=== PATIENT | male | born 1945 | race Caucasian/White ===

== ENCOUNTER 2017-02-20 08:41 | Inpatient (IN) | payer MEDICARE ==
[~2017-02-20] VITALS: Ht 172.7 cm; Wt 96.6 kg
[~2017-02-20 08:41] MED LIST: ATENOLOL50 MG PO; FERROUS SULFAT325 MG PO; LEVAQUIN500 MG PO; LEVEMIR100 UNIT/1 SQ; METFORMIN HCL500 MG PO; NOVOLOG100 UNIT/1 SQ; OMEPRAZOLE40 MG PO; PROAIR HFA INH8.5 GM INH; RAMIPRIL10 MG PO
[2017-02-20 10:52] LABS: INR 1.15; PROTHROMBIN TIME 15.3 seconds (11.9-14.5)
[2017-02-20 10:53] LABS: PARTIAL THROMBOPLASTIN TIME 32.2 seconds (23.8-35.5)
[2017-02-20] MEDS ORDERED: LORAZEPAM INJ 2 MG/ML VIAL ONE (10:56)
--- NOTE | 2017-02-20 14:47 | Diagnostic Imaging Report ---
PROCEDURE: CT GUIDED NEEDLE PLACEMENT COMPARISON: [facility] CT ABDOMEN/PELVIS 07/21/[address] images [address] CHEST dated 02/02/2017 INDICATIONS: Left upper lobe mass MEDICATIONS:5 ml 1% lidocaine; patient did receive Ativan in incremental fashion with a total dose of 2 mg. He was continuously monitored during the procedure by the dedicated IR nurse. EBL: < 5 ml SPECIMEN: Given to pathology DLP: 3831.36 mGy-cm DESCRIPTION OF PROCEDURE: Informed consent was obtained. The patient's left upper chest was prepped and draped in the standard sterile fashion. Multiple CT images were used to localize the abnormality. The skin was anesthetized with lidocaine. Using CT guidance 17 gauge guiding needle was placed into the cavitary left upper lobe mass. Through this needle guide multiple FNA passes were performed with 20G Chiba needles. A total of 6 core biopsies utilizing a 20 gauge biopsy gun were also performed. The samples were given to pathology in attendance. The patient tolerated the procedure well. Post procedure pneumothorax was noted. The patient remained asymptomatic but it was elected to place a chest tube. CONCLUSION: Successful CT guided left upper lobe mass biopsy. Talha Rollins D.O. Dictated by: Talha Rollins D.O. on 02/20/2017 at 14:55 Electronically approved by: Talha Rollins D.O. on 02/20/2017 at 14:55
--- NOTE | 2017-02-20 14:51 | Diagnostic Imaging Report ---
PROCEDURE:CHEST TUBE PLACEMENT COMPARISON:CT biopsy performed this date. INDICATIONS:LEFT UPPER LOBE LESION DESCRIPTION OF PROCEDURE:Informed consent was obtained. The patient was prepped and draped in the standard sterile fashion. Using CT guidance, a chest tube was sterilely placed into the pleural space with Seldinger technique. TUBE SPECIFICATIONS:10 [place] loop locking all purpose catheter. TUBE LOCATION:Left lower anterior lung base MEDICATIONS:None COMPLICATIONS:None. CONCLUSION: 1. Chest tube placement without complication. 2. Tube was placed to 20 cm of wall suction. 3. Patient will be admitted for chest tube management. Talha Rollins D.O. Dictated by: Talha Rollins D.O. on 02/20/2017 at 14:58 Electronically approved by: Talha Rollins D.O. on 02/20/2017 at 14:58
--- NOTE | 2017-02-20 14:54 | Diagnostic Imaging Report ---
PROCEDURE: CHEST XRAY POST PROCEDURE COMPARISON: None. INDICATIONS: POST LUNG BX FINDINGS: LUNGS: Mild pulmonary vascular prominence. Left basilar chest tube. PLEURA: Small residual pneumothorax on the recent chest tube placement CT is barely visible but likely in the left anterior upper lobe medially. HEART \T\ MEDIASTINUM: The heart is within normal size-limits. BONES \T\ SOFT TISSUES: No acute findings. Bear screws overlie the right humeral head. CONCLUSION: Minimal residual pneumothorax. Talha Rollins D.O. Dictated by: Talha Rollins D.O. on 02/20/2017 at 15:02 Electronically approved by: Talha Rollins D.O. on 02/20/2017 at 15:02
[2017-02-20 16:00] VITALS: BP 115/63
[2017-02-20] MEDS ORDERED: INSULIN DETEMIR 26 UNIT SQ SCH (16:30)
[2017-02-20] MEDS: HYDROCODONE/APAP 10MG-325MG TAB PO PRN ×2 (16:50→22:50)
[2017-02-20] MEDS: METFORMIN HCL 500 MG TAB PO SCH (17:00)
[2017-02-20 17:32] VITALS: BP 115/63
[2017-02-20] MEDS: INSULIN LISPRO 100 UNIT/1 ML 3ML VIAL SQ SCH (19:23)
[2017-02-20 20:00] VITALS: BP 135/62
[2017-02-20] MEDS ORDERED: ZOLPIDEM TARTRATE 10 MG TAB PO PRN (21:00)
[2017-02-20] MEDS: INSULIN DETEMIR 100 UNIT/ML PEN SQ SCH (21:14)
[2017-02-21 00:25] VITALS: BP 98/55
[2017-02-21 08:00] VITALS: BP 106/52
[2017-02-21] MEDS: FERROUS SULFATE 325 MG TAB PO SCH (08:23)
[2017-02-21] MEDS: PANTOPRAZOLE SOD 40 MG TABEC PO SCH (08:23)
[2017-02-21] MEDS: RAMIPRIL 5 MG CAP PO SCH (08:23)
[2017-02-21] MEDS: METFORMIN HCL 500 MG TAB PO SCH ×2 (08:23→17:12)
[2017-02-21] MEDS: ATENOLOL 50 MG TAB PO SCH (08:25)
[2017-02-21] MEDS ORDERED: NON-FORMULARY MEDICATION (Ramipril 10 MG) PO SCH (09:00)
[2017-02-21] MEDS: INSULIN LISPRO 100 UNIT/1 ML 3ML VIAL SQ SCH ×3 (10:04→16:30)
[2017-02-21 12:00] VITALS: BP 185/91
[2017-02-21] MEDS: HYDROCODONE/APAP 10MG-325MG TAB PO PRN ×3 (12:21→22:15)
--- NOTE | 2017-02-21 15:28 | Diagnostic Imaging Report ---
PROCEDURE: Frontal and lateral views of the chest. COMPARISON: [facility], CT, OUTSIDE CT IMAGES, 02/02/2017, 13:36. Patients [facility], DX, CHEST XRAY POST PROCEDURE, 02/20/2017, 14:18. INDICATIONS: post lung bx FINDINGS: See impression. IMPRESSION: 1. previously described lucency in the left lung is less conspicuous on the current exam. No abnormal lucency is noted anteriorly on the lateral view. 2. No definite pneumothorax is identified. 3. Central pulmonary venous congestion. Prominence of the interstitial markings bilaterally, consistent with previously visualized fibrotic/interstitial changes. Mookie Lloyd M.D. Dictated by: Mookie Lloyd M.D. on 02/21/2017 at 15:35 Electronically approved by: Mookie Lloyd M.D. on 02/21/2017 at 15:35
[2017-02-21 16:00] VITALS: BP 175/87
[2017-02-21 20:00] VITALS: BP 129/61
[2017-02-21] MEDS: ACETAMINOPHEN 325 MG TAB PO PRN (20:40)
[2017-02-21] MEDS: INSULIN DETEMIR 100 UNIT/ML PEN SQ SCH (21:28)
[2017-02-22] VITALS (11 sets, daily range): BP systolic 78–205; BP diastolic 49–92
[2017-02-22] MEDS: HYDROCODONE/APAP 10MG-325MG TAB PO PRN (02:30)
[2017-02-22] MEDS: ACETAMINOPHEN 325 MG TAB PO PRN ×3 (05:15→19:50)
--- NOTE | 2017-02-22 07:02 | Diagnostic Imaging Report ---
EXAM: CHEST 2 VIEWS, PA and lateral DATE: 02/22/2017 6:00 AM Time stamp on exam: 0554 hours INDICATION: Pneumothorax postlung biopsy COMPARISON: None available FINDINGS: LINES/TUBES: Partially visualized left basilar percutaneous pigtail pleural drain. LUNGS: Bilateral emphysema and peripheral pulmonary fibrosis. Left upper lobe mass. PLEURA: No pneumothorax. HEART AND MEDIASTINUM: Normal size and contour. BONES AND SOFT TISSUES: No acute findings. IMPRESSION: No pneumothorax. Signed by: Dr. Faby Jefferson M.D. on 02/22/2017 6:59 AM
[2017-02-22] MEDS: INSULIN LISPRO 100 UNIT/1 ML 3ML VIAL SQ SCH ×3 (08:39→16:55)
[2017-02-22] MEDS: RAMIPRIL 5 MG CAP PO SCH (08:39)
[2017-02-22] MEDS: FERROUS SULFATE 325 MG TAB PO SCH (08:39)
[2017-02-22] MEDS: METFORMIN HCL 500 MG TAB PO SCH ×2 (08:39→16:55)
[2017-02-22] MEDS: PANTOPRAZOLE SOD 40 MG TABEC PO SCH (08:39)
[2017-02-22] MEDS: ATENOLOL 50 MG TAB PO SCH (08:39)
[2017-02-22 10:14] LABS: BASOPHILS % 0.5 % (0.0-1.0); EOSINOPHILS % 0.3 % (0.0-6.0); HEMATOCRIT 44.8 % (38.2-49.6); HEMOGLOBIN 15.8 g/dL (14.0-18.0); LYMPHOCYTES # (AUTO) 0.9 (1.0-3.2); LYMPHOCYTES % 14.9 % (18.0-39.1); MEAN CORPUSCULAR HEMOGLOBIN 34.6 pg (28-32); MEAN CORPUSCULAR HGB CONC 35.3 g/dL (31-35); MEAN CORPUSCULAR VOLUME 98.2 fL (81-99); MONOCYTES # (AUTO) 0.6 (0.2-0.8); MONOCYTES % 10.7 % (4.4-11.3); NEUTROPHILS # (AUTO) 4.3 (2.1-6.9); NEUTROPHILS % 72.9 % (38.7-80.0); PLATELET COUNT 93 x10e3/uL (140-360); RED BLOOD COUNT 4.56 x10e6/uL (4.3-5.7); RED CELL DISTRIBUTION WIDTH 14.6 % (11.7-14.4)
[2017-02-22 10:28] LABS: ANION GAP 14.8 mmol/L (8-16); BLOOD UREA NITROGEN 16 mg/dL (7-26); BUN/CREATININE RATIO 18 (6-25); CALCIUM 8.5 mg/dL (8.4-10.2); CARBON DIOXIDE 19 mmol/L (22-29); CHLORIDE 100 mmol/L (98-107); CREATININE, SERUM 0.87 mg/dL (0.72-1.25); EST GLOMERULAR FILTRATION RATE > 60 ML/MIN (60-); GLUCOSE 206 mg/dL (74-118); POTASSIUM 3.8 mmol/L (3.5-5.1); SODIUM 130 mmol/L (136-145)
[2017-02-22] MEDS ORDERED: CLONIDINE HCL 0.2 MG TAB PO PRN (12:00)
[2017-02-22] MEDS ORDERED: SODIUM CHLORIDE 0.9% 1000ML 1,000 ML IV SCH (12:00)
[2017-02-22] MEDS ORDERED: AZITHROMYCIN 500MG/NS 250 ML 250 ML IV SCH (12:30)
[2017-02-22 13:07] LABS: BILIRUBIN,URINE NEGATIVE (NEGATIVE); KETONES,URINE NEGATIVE (NEGATIVE); LEUKOCYTE ESTERASE ,URINE NEGATIVE (NEGATIVE); NITRITE,URINE NEGATIVE (NEGATIVE); PROTEIN,URINE DIPSTICK NEGATIVE (NEGATIVE); URINE UROBILINOGEN 0.2 mg/dL (0.2 - 1)
[2017-02-22 13:08] LABS: CLARITY,URINE CLEAR (CLEAR); COLOR,URINE YELLOW (YELLOW); EPITHELIAL CELLS,URINE RARE /LPF
--- NOTE | 2017-02-22 13:22 | Diagnostic Imaging Report ---
PROCEDURE: CHEST SINGLE (PORTABLE) 1245 hrs. COMPARISON: Chest x-ray 0554 hours; CT chest from outside institution 02/02/17; CT lung biopsy 02/20/17 INDICATIONS: CHEST TUBE REMOVAL FINDINGS: LUNGS: Pigtail catheter in the left lung base has been removed. The image is under-penetrated. There is a sliver of hypoattenuation along the medial and inferior aspect of the left lung that parallels the descending thoracic aorta suggestive residual pneumothorax. A soft tissue density in the lateral left upper lobe measures approximately 3 cm and corresponds to the cavitary mass in spiculation identified on CT. This is similar in appearance. The interstitial prominence throughout each lung is stable. The lungs are diffusely hyperinflated consistent with emphysema. There are no new air space opacities. PLEURA: No effusions. HEART \T\ MEDIASTINUM: The heart is mildly enlarged. The aorta is ectatic and stable in morphology. No hilar lymphadenopathy. BONES \T\ SOFT TISSUES: No focal osseous lesions. CONCLUSION: Small anterior and medial pneumothorax in the inferior chest is suspected after chest tube removal. Emphysema. Left upper lobe mass is stable in size and morphology. Dictated by: Gomez Aleman M.D. on 02/22/2017 at 13:30 Electronically approved by: Gomez Aleman M.D. on 02/22/2017 at 13:30
[2017-02-22] MEDS ORDERED: SODIUM CHLORIDE 0.9% 250ML 250 ML ONE (15:36)
[2017-02-22] MEDS ORDERED: SODIUM CHLORIDE 0.9% 250ML 250 ML IV ONE (15:45)
[2017-02-22] MEDS ORDERED: CEFTRIAXONE SOD 1 GM VIAL IV SCH (16:00)
[2017-02-22] MEDS: OSELTAMIVIR PHOSPHATE 75 MG CAP PO SCH (16:16)
[2017-02-22] MEDS: LEVOFLOXACIN 500MG/D5W 100ML 100 ML IV SCH (16:54)
[2017-02-22] MEDS: INSULIN DETEMIR 100 UNIT/ML PEN SQ SCH (21:30)
[2017-02-23 00:33] VITALS: BP 121/51
[2017-02-23 05:51] VITALS: BP 156/84
[2017-02-23] MEDS: ACETAMINOPHEN 325 MG TAB PO PRN ×2 (06:25→16:36)
[2017-02-23 08:29] VITALS: BP 123/59
[2017-02-23] MEDS: FERROUS SULFATE 325 MG TAB PO SCH (10:03)
[2017-02-23] MEDS: METFORMIN HCL 500 MG TAB PO SCH ×2 (10:03→16:40)
[2017-02-23] MEDS: ATENOLOL 50 MG TAB PO SCH (10:03)
[2017-02-23] MEDS: INSULIN LISPRO 100 UNIT/1 ML 3ML VIAL SQ SCH ×3 (10:03→16:40)
[2017-02-23] MEDS: PANTOPRAZOLE SOD 40 MG TABEC PO SCH (10:03)
[2017-02-23] MEDS: OSELTAMIVIR PHOSPHATE 75 MG CAP PO SCH ×2 (10:50→16:40)
[2017-02-23] MEDS ORDERED: DEXTROSE 50% SYRINGE 50 ML IV PRN (12:00)
[2017-02-23 12:30] VITALS: BP 127/78
--- NOTE | 2017-02-23 13:31 | Consultation ---
DATE OF CONSULTATION: February 23, 2017 INFECTIOUS DISEASE CONSULTATION ATTENDING PHYSICIAN: Dr. Wolf Somers. REASON FOR CONSULTATION: Fever. Thank you, Dr. Somers, for asking me to see this patient. HISTORY: The patient is a 71-year-old man referred for fever. He was admitted on February 20, 2017, for left lung biopsy. The patient was noted to have a left upper lobe lesion on chest CT scan. He underwent the procedure as planned, but his course was complicated by a left pneumothorax, lung collapse and fever. He denies nausea, vomiting, diarrhea, dysuria and abdominal pain. The patient required chest tube placement until yesterday. He also had peripheral IVs, which were removed. Currently he feels better but still reports feeling hot and cold. PAST MEDICAL HISTORY: Diabetes mellitus type 2, hypertension, hyperlipidemia, chronic obstructive pulmonary disease, peptic ulcer disease and postpolio syndrome. PAST SURGICAL HISTORY: Multiple right leg reconstructive surgeries for complications of polio. Also, hand surgery. ALLERGIES: NO KNOWN DRUG ALLERGIES. MEDICATION: The current antimicrobials are Levaquin 500 mg IV piggyback q.24 h., azithromycin 500 mg IV piggyback q.24 h. and oseltamivir 750 mg p.o. b.i.d. IMMUNIZATION: He received influenza vaccine in December 2016. Also, he received pneumococcal vaccination in the past. FAMILY HISTORY: His father of liver cancer. His mother had diabetes mellitus and stroke. A sister with diabetes mellitus and breast cancer. SOCIAL HISTORY: He quit smoking cigarettes in 1992. REVIEW OF SYSTEMS: As per history of present illness. PHYSICAL EXAMINATION GENERAL: No acute distress. VITAL SIGNS: T-max 101.8, pulse 76, respiratory rate 20, blood pressure 123/59. Weight 213 pounds. HEENT: Normocephalic. There is no icterus or injection of conjunctivae. There is no ear or nasal discharge. Moist oral mucosa. No pharyngeal erythema or exudate. NECK: Supple. No lymphadenopathy. LUNGS: A few rhonchi bilaterally. HEART: Normal S1 and S2. Regular. ABDOMEN: Soft and nontender. EXTREMITIES: There is atrophy of the right lower extremity with plus edema. There is no clubbing or cyanosis. SKIN: There is old ecchymosis of the left upper chest. There is no acute erythema. MAT PACKER: Awake, alert and oriented to person, place and time. LABORATORY: February 22, 2017: WBC 5960, hemoglobin 15.8, platelet 93,000. Neutrophil 72.9, lymph 14.9, mono 10.7, eosinophil 0.3, basophil 0.5. BUN 16, creatinine 0.87, blood glucose 148. Urinalysis is negative. Blood culture is pending. Sputum AFB smear is negative. IMPRESSION 1. Fever. Appears to improve. 2. Pneumothorax complicating left lung biopsy, resolved. 3. Chronic obstructive pulmonary disease. 4. Diabetes mellitus type 2, controlled. PLAN 1. Stop azithromycin. 2. Check venous Doppler ultrasound of the left lower limb. Job#: [id number] EV
[2017-02-23 16:11] VITALS: BP 141/64
[2017-02-23] MEDS: LEVOFLOXACIN 500MG/D5W 100ML 100 ML IV SCH (16:39)
[2017-02-23] MEDS ORDERED: KETOROLAC TROMETHAMINE 30 MG/ML VIAL IV ONE (17:00)
[2017-02-23 20:00] VITALS: BP 119/68
[2017-02-23] MEDS: INSULIN DETEMIR 100 UNIT/ML PEN SQ SCH (21:00)
[2017-02-24 00:51] VITALS: BP 126/76
[2017-02-24 04:52] VITALS: BP 116/56
[2017-02-24] MEDS: HYDROCODONE/APAP 10MG-325MG TAB PO PRN (05:34)
[2017-02-24] MEDS: INSULIN LISPRO 100 UNIT/1 ML 3ML VIAL SQ SCH ×2 (07:30→11:30)
[2017-02-24 08:00] VITALS: BP 125/59
[2017-02-24] MEDS: METFORMIN HCL 500 MG TAB PO SCH (08:00)
[2017-02-24] MEDS: PANTOPRAZOLE SOD 40 MG TABEC PO SCH (09:00)
[2017-02-24] MEDS: OSELTAMIVIR PHOSPHATE 75 MG CAP PO SCH (09:00)
[2017-02-24] MEDS: ATENOLOL 50 MG TAB PO SCH (09:00)
[2017-02-24] MEDS: FERROUS SULFATE 325 MG TAB PO SCH (09:00)
[2017-02-24 12:00] VITALS: BP 158/70
== END 2017-02-24 14:00 | disposition home or self-care (01) | DRG 201 ==
LOC: CT 08:41 → MED/SURG2 14:02
PROVIDERS: ADMIT Internal Medicine Critical Care Medicine; ATTEND Internal Medicine Critical Care Medicine
PROC: 0BBG3ZX Excision of Left Upper Lung Lobe, Percutaneous Approach, Diagnostic (ICD-10-PCS; principal; 2017-02-20)
PROC: 0W9B3ZX Drainage of Left Pleural Cavity, Percutaneous Approach, Diagnostic (ICD-10-PCS; 2017-02-20)
PROC: 0W9B30Z Drainage of Left Pleural Cavity with Drainage Device, Percutaneous Approach (ICD-10-PCS; 2017-02-20)
DX: J95.811 Postprocedural pneumothorax (principal); K74.60 Unspecified cirrhosis of liver; J44.9 Chronic obstructive pulmonary disease, unspecified; E11.9 Type 2 diabetes mellitus without complications; Y84.8 Other medical procedures as the cause of abnormal reaction of the patient, or of later complication, without mention of misadventure at the time of the procedure; Y92.238 Other place in hospital as the place of occurrence of the external cause; R91.1 Solitary pulmonary nodule; R50.9 Fever, unspecified; Z79.4 Long term (current) use of insulin; Z77.090 Contact with and (suspected) exposure to asbestos
CPT/HCPCS: 32405; 32557; 36415; 71010; 71020; 77012; 80048; 81001; 82948; 85025; 85049; 85610; 85730; 87040; 87086; 87116; 87205; 87206; 87400; 88172; 88173; 88305; 88342; 93971; 97139; C1729; J0456; J1885; J1956; J2060; J7030; J7050

== ENCOUNTER → 2017-08-28 | Outpatient (CLI) | payer MEDICARE ==
--- NOTE | 2017-08-28 13:18 | Diagnostic Imaging Report ---
PROCEDURE:CT CHEST WITHOUT CONTRAST COMPARISON:[facility], CT, CT CHEST WO, 07/20/2014, 17:32; CT chest performed at no cost [facility] 02/02/17 INDICATIONS:MICROBACTERIA AVIUM COMPLEX TECHNIQUE: Axial CT images of the chest were obtained from the lung apices through the adrenal glands intravenous contrast. Coronal and sagittal reformations were made available for review. RADIATION DOSE: Total DLP: 536.02 mGy*cm Estimated effective dose: (DLP x 0.014 x size factor) mSv FINDINGS: Lymph nodes: No enlarged axillary, supraclavicular lymph nodes. Prominent mediastinal lymph nodes are stable with subcarinal lymph nodes measuring up to 2 cm in short axis. No evidence of hilar lymphadenopathy given the lack of intravenous contrast. No large cardiophrenic lymph nodes. Thyroid/base of neck: Unremarkable. Heart \T\ Mediastinum:The heart is top normal in size. Main pulmonary artery measures 3.2 cm in diameter (previously, 2.9 cm). Ascending aorta measures 3.3 cm in diameter (previously, 3.5 cm). No pericardial effusion. Moderate to severe coronary artery atherosclerosis. The esophagus is collapsed. Lungs: Right lung: Centrilobular and paraseptal emphysema are stable with areas of fibrosis. New partially calcified cavitary mass in the lateral upper lobe abutting the pleura measures 2.2 x 2.9 cm. No intraluminal fluid. No new findings in the middle or lower lobes. Punctate calcified granulomata are present throughout. Left lung: Centrilobular and paraseptal emphysema are stable with areas of fibrosis. Solid lateral upper lobe partially calcified mass in 2014 has now developed into a cavitating thick-walled complex measuring 3.4 x 3.0 cm (most recently, 3.7 x 3.0 cm). This is stable in morphology compared to the outside CT. No intraluminal fluid. Focal pleural thickening immediately adjacent is stable. 4-5 posterior satellite nodules have developed in measure up to 9 mm. Apical nodule measuring 6 x 11 mm is stable. No new findings in the lower lobe. Multiple subcentimeter calcified granulomata are stable. Pleura:No pleural effusion or pneumothorax. Airways: No bronchiectasis or intraluminal filling defect. Upper abdomen:Lobulated appearance of the liver is similar suggestive of cirrhosis. Stable mild splenomegaly with rounded contours. Multiple perigastric varices are present and grossly stable. Visualized portions of the adrenal glands are unremarkable. No ascites. Musculoskeletal:No compression fractures. Degenerative changes of the lower thoracic spine are stable. No lytic or blastic lesions. A lipoma of the left subscapularis is stable. . CONCLUSION: 1. Thick-walled, partially calcified cavitation in the left upper lobe with adjacent pleural thickening is stable. New soft tissue nodules have developed surrounding this mass suggestive of continued infection. Left apical nodule is stable. 2. New thick-walled cavitating mass in the right upper lobe abutting the pleura consistent with ongoing JUWAN infection. 3. Cirrhotic morphology of the liver and splenomegaly with varices consistent with portal hypertension. 4. Combined pulmonary fibrosis and emphysema. No progression. 5. Enlarged main pulmonary artery suggestive of pulmonary artery hypertension. Stable prominent subcarinal lymph nodes. Dictated by: Gomez Aleman M.D. on 08/28/2017 at 13:21 Electronically approved by: Gomez Aleman M.D. on 08/28/2017 at 13:21
== END ==
LOC: CT 10:58
PROVIDERS: ATTEND Internal Medicine Critical Care Medicine
DX: A31.2 Disseminated mycobacterium avium-intracellulare complex (DMAC) (principal)
CPT/HCPCS: 71250

== ENCOUNTER → 2018-03-21 | Outpatient (CLI) | payer MEDICARE ==
--- NOTE | 2018-03-21 15:49 | Diagnostic Imaging Report ---
EXAM: CT Chest WITHOUT contrast INDICATION: Mycobacterium avium. COMPARISON: CT chest 07/20/2014, CT Chest 08/28/2017. TECHNIQUE: Chest was scanned utilizing a multidetector helical scanner from the lung apex through the level of the adrenal glands without administration of IV contrast. Absence of intravenous contrast decreases sensitivity for detection of lymphadenopathy and vascular pathology. Coronal and sagittal reformations were obtained. Routine protocol was performed. IV CONTRAST: None COMPLICATIONS: None RADIATION DOSE: Total DLP: 524 mGy*cm CTDIvol has been reviewed. It is below the limits set by the Radiation Protocol Committee (RPC). Dose modulation, iterative reconstruction, and/or weight based adjustment of the mA/kV was utilized to reduce the radiation dose to as low as reasonably achievable. FINDINGS: LINES/ TUBES: None. LUNGS AND AIRWAYS: Severe bilateral centrilobular and paraseptal emphysema. Again noted are fibrotic changes with architectural distortion honeycombing, most pronounced in the lower lobes. Interval decrease in size of a cavitary left upper lobe partially calcified mass, now measuring up to 2.3 x 2.6 cm, previously 3.1 x 3.3 cm on the measurement on CT from 08/28/2017. Adjacent focal pleural thickening is unchanged. There are new clustered nodules in the medial left upper lobe on series 3, image 27. Multiple other noncalcified and calcified satellite nodules are unchanged. There is increasing size and cavitation of a mass in the right upper lobe, now measuring up to 3.8 x 2.4 cm, previously 1.8 x 2 cm. Bronchiectasis in the perihilar distribution is unchanged. Mild intralobular septal thickening with scattered groundglass opacities are present. PLEURA: Foci calcified pleural plaque in the left upper lobe. No pleural effusion or pneumothorax. HEART AND MEDIASTINUM: The thyroid gland is normal. Unchanged prominent subcarinal lymph node, measuring up to 2 cm short axis. The heart is normal in size. There is no pericardial effusion. The main pulmonary artery is mildly enlarged, measuring up to 3.2 cm. The thoracic aorta is normal in size associated with moderate calcifications. Extensive coronary artery calcifications. UPPER ABDOMEN: Cirrhotic morphology to the liver. Mild splenomegaly. Partially seen perigastric varices. Partially visualized right adrenal gland is unremarkable. BONES/SOFT TISSUES: Mild multilevel degenerative disk disease of the thoracic spine. IMPRESSION: Interval decrease in size of thick-walled, partially calcified cavitary mass in the left upper lobe with some stable and additional new surrounding soft tissue nodules. Interval increased size and cavitation of right upper lobe mass, consistent with ongoing JUWAN infection. Cirrhotic morphology to the liver with splenomegaly. Similar appearance of pulmonary fibrosis with associated severe emphysematous changes of the lungs. Signed by: Dr. Ferdinand Lemon MD on 03/21/2018 3:45 PM
== END ==
LOC: CT 14:28
PROVIDERS: ATTEND Internal Medicine Critical Care Medicine
DX: A31.2 Disseminated mycobacterium avium-intracellulare complex (DMAC) (principal)
CPT/HCPCS: 71250

== ENCOUNTER → 2018-05-04 | Outpatient (CLI) | payer MEDICARE ==
--- NOTE | 2018-05-04 11:44 | Diagnostic Imaging Report ---
EXAM: US EXTREMITY BANDA NON-VAS - RIGHT AXILLA DATE: 05/04/2018 10:01 AM INDICATION: Shoulder pain, mass COMPARISON: None FINDINGS: Grayscale and color flow Doppler ultrasound of the right axilla was performed. There is an oval cystic area measuring 1.8 x 1.3 x 1.0 cm adjacent to the chest wall in the right axilla. No internal blood flow is seen on color flow images. IMPRESSION: 1.8 cm nonspecific cystic mass in the right axilla. Signed by: Dr. Jovan Whyte M.D. on 05/04/2018 11:41 AM
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
== END ==
LOC: US 09:39
PROVIDERS: ATTEND Family Medicine
DX: M25.511 Pain in right shoulder (principal); R22.2 Localized swelling, mass and lump, trunk; I10 Essential (primary) hypertension
CPT/HCPCS: 76882

== ENCOUNTER → 2018-08-06 | Outpatient (CLI) | payer MEDICARE ==
[~2018-08-06] MED LIST changes: +GADOBENATE DIMEGLUMINE 1 ML IV ONE
[2018-08-06 15:17] LABS: BLOOD UREA NITROGEN 20 mg/dL (7-26); BUN/CREATININE RATIO 24 (6-25); CREATININE, SERUM 0.83 mg/dL (0.72-1.25); EST GLOMERULAR FILTRATION RATE > 60 ML/MIN (60-)
--- NOTE | 2018-08-07 09:47 | Diagnostic Imaging Report ---
Examination: MRI BRAIN WITHOUT AND WITH CONTRAST History: Vascular headache. Bilateral weakness. Difficulty cannulating. Comparison studies: None Technique: Pre-contrast: Sagittal T2; axial T1, GRE or SWI, DWI, T2 FLAIR Post-contrast: axial, sagittal and coronal T1. Intravenous contrast: 20 mL MultiHance Findings: Scalp: No abnormal signal. No masses. Bone marrow: Normal in signal intensity. Brain volume: Mild generalized volume loss without lobar predominance Ventricles: Ex vacuo dilatation. No hydrocephalus. Parenchyma: There are is punctate and subtle confluent areas of T2/FLAIR hyperintensity in the periventricular and subcortical white matter, nonspecific. Intrinsic T1 hyperintensity within the bilateral lentiform nuclei, nonspecific No masses, hemorrhage, or acute vascular insults. Extra-axial spaces: No lesion, fluid collection or hematoma. Enhancement: No abnormal enhancement. Suprasellar and sellar region: No abnormalities. Craniocervical junction: No abnormalities. The foramen magnum is patent. No Chiari malformations. Vessels: Normal flow-voids in the arteries and sinuses. Additional findings:Mild inflammatory mucosal thickening of the left sphenoid sinus. IMPRESSION: 1. No acute intracranial abnormality. 2. Mild chronic microvascular ischemic change and volume loss. 3. Intrinsic T1 hyperintensity within the bilateral lentiform nuclei, which can be seen in host of etiologies including liver failure, hyperalimentation and magnesium deposition. Signed by: Dr. Noa Sheldon M.D. on 08/07/2018 9:44 AM
== END ==
LOC: CARD 14:06
PROVIDERS: ATTEND Family Medicine
DX: G44.1 Vascular headache, not elsewhere classified (principal); I65.23 Occlusion and stenosis of bilateral carotid arteries; R53.1 Weakness; I10 Essential (primary) hypertension; R35.0 Frequency of micturition
CPT/HCPCS: 36415; 70553; 82565; 84520; 93880; A9577

== ENCOUNTER → 2018-10-03 | Outpatient (RCR) | payer MEDICARE ==
[~2018-10-03] MED LIST changes: -GADOBENATE DIMEGLUMINE 1 ML IV ONE
== END ==
LOC: PT 12:33
PROVIDERS: ATTEND Family Medicine
DX: M62.89 Other specified disorders of muscle (principal); M62.81 Muscle weakness (generalized); Z86.12 Personal history of poliomyelitis

== ENCOUNTER 2018-11-02 14:00 | Outpatient (RCR) | payer MEDICARE | END 2018-11-03 | LOC: PT 14:00 | PROVIDERS: ATTEND Family Medicine | DX: M62.89 Other specified disorders of muscle (principal); M62.81 Muscle weakness (generalized); Z86.12 Personal history of poliomyelitis ==

== ENCOUNTER → 2019-01-04 | Outpatient (CLI) | payer MEDICARE ==
--- NOTE | 2019-01-04 17:50 | Diagnostic Imaging Report ---
EXAM: CT Chest WITHOUT intravenous contrast 01/04/2019 12:49 PM INDICATION: Cavitary lung lesions. COMPARISON: CT chest of 03/21/2018 TECHNIQUE: Chest was scanned utilizing a multidetector helical scanner from the lung apex through the level of the adrenal glands without administration of IV contrast. Coronal and sagittal reformations were obtained. Routine protocol was performed. IV CONTRAST: None RADIATION DOSE: Total DLP: 581.8 mGy*cm. Dose modulation, iterative reconstruction, and/or weight based adjustment of the mA/kV was utilized to reduce the radiation dose to as low as reasonably achievable. COMPLICATIONS: None FINDINGS: LINES/ TUBES: None. LUNGS AND AIRWAYS: The central airways are patent. Severe bilateral centrilobular and paraseptal emphysema. Cavitary lung masses in the left upper lobe and right upper lobe appear essentially unchanged compared to the CT of 03/21/2018. Predominantly peripheral interstitial opacities, architectural distortion and traction bronchiectasis with honeycombing. Previously identified subcentimeter pulmonary nodules appear unchanged. PLEURA: No pleural effusion or pneumothorax. HEART AND MEDIASTINUM: The thyroid gland is normal. No supraclavicular lymphadenopathy. Subcarinal lymph node measures up to 1.7 cm short axis. No hilar lymphadenopathy. The heart is enlarged. No pericardial effusion. Scattered atherosclerotic calcifications involve the coronary arteries, thoracic aorta and proximal great vessels.. UPPER ABDOMEN: Cirrhotic liver contour. No focal liver lesion. No focal abnormalities of the partially visualized spleen, pancreas, adrenals, and upper most kidneys. BONES: No acute osseous injury. No suspicious lytic or blastic lesions. Degenerative changes of the visualized spine. SOFT TISSUES: Unremarkable. IMPRESSION: Unchanged left upper lobe and right upper lobe cavitary nodules. Severe diffuse centrilobular and paraseptal emphysema. Chronic interstitial lung disease in a UIP distribution. Recommendations: PET/CT versus tissue sampling for persistent biapical nodules. Signed by: Ashanti Panda MD on 01/04/2019 5:46 PM
== END ==
LOC: CT 12:39
PROVIDERS: ATTEND Internal Medicine Critical Care Medicine
DX: R91.8 Other nonspecific abnormal finding of lung field (principal)
CPT/HCPCS: 71250

== ENCOUNTER → 2019-04-04 | Day surgery (SDC) | payer OTHER ==
[~2019-04-04] MED LIST changes: +CRESTOR10 MG PO; +ETHAMBUTOL HCL400 MG PO; +FUROSEMIDE40 MG PO; +LACTULOSE20 GM/30 M PO; +POTASSIUM CHLO20 ME1 PO; +PROPOFOL IV EMULSION 10 MG/ML 20 ML VIAL ONE; +RIFABUTIN150 MG PO; +SPIRONOLACTONE25 MG PO; +TOPIRAMATE25 MG PO
--- OUTSIDE RECORDS SUMMARY | 2019-04-04 10:10 | XMS REPORT ---
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 JAMAL NOLAN MR #: [id number] : 1945 Age/Sex: 71/M Req #: [id number] Adm Physician: NUNO ROMANO MD Ordered by: NUNO ROMANO MD Report #: [id number] Location: MED/SURG2 Room/Bed: [facility] [place] Procedure: [id number] DX/[facility] ST SINGLE (PORTABLE) Exam Date: 02/22/17 Exam Time: 1250 REPORT STATUS: Signed PROCEDURE: CHEST SINGLE (PORTABLE) 1245 hrs. COMPARISON: Chest x-ray 0554 hours; CT chest from outside institution 02/02/17; CT lung biopsy 02/20/17 INDICATIONS: CHEST TUBE REMOVAL FI NDINGS: LUNGS: Pigtail catheter in the left lung base has been removed. The image is under-penetrated. There is a sliver of hypoattenuation along the medial and inferior aspect of the left lung that parallels the descending thoracic aorta suggestive residual pneumothorax. A soft tissue density in the lateral left upper lobe measures approximately 3 cm and corresponds to the cavitary mass in spiculation identified on CT. This is similar in appea jefferson. The interstitial prominence throughout each lung is stable. The lungs are diffusely hyperinflated consistent with emphysema. There are no new air s pace opacities. PLEURA: No effusions. HEART T MEDIASTINUM : The heart is mildly enlarged. The aorta is ectatic and stable in morphology . No hilar lymphadenopathy. BONES T SOFT TISSUES: No focal osseous les ions. CONCLUSION: Small anterior and medial pneumothorax in the i nferior chest is suspected after chest tube removal. Emphysema. Left upp er lobe mass is stable in size and morphology. Dictated by: Poli almonte M.D. on 02/22/2017 at 13:30 Electronically approved by: Poli Burden M.D. on 02/22/2017 at 13:30 Dictated By: POLI Hobbs MD 1330 Transcrib ed By: JOSE on 02/22/17 1330 COPY TO: NUNO ROMANO MD CHEST 2 VIEWS [place] [address] Patient Name: JAMAL NOLAN MR #: [id number] : 1945 Age/Sex: 71/M Req #: [id number] Adm Physician: NUNO ROMANO MD Ordered by: NUNO ROMANO MD Report #: [id number] Location: MED/SURG2 Room/Bed: [facility] [place] Procedure: [id number] DX/[facility] 2 VIEWS Exam Date: 02/22/17 Exam Time: 0550 REPORT STATUS: Signed EXAM: CHEST 2 VIEWS, PA and lateral DATE: 02/22/2017 6:00 AM Time stamp on exam: 0554 hours INDICATION: Pneumothorax postlung bio psy COMPARISON: None available FINDINGS: LINES/TUBES: Partially visuali zed left basilar percutaneous pigtail pleural drain. LUNGS: Bilateral emp hysema and peripheral pulmonary fibrosis. Left upper lobe mass. PLEURA: No pneumothorax. HEART AND MEDIASTINUM: Normal size and contour. BONES AND SOFT TISSUES: No acute findings. IMPRESSION: No pneumothorax. Signed by: Dr. Mabel Jefferson M.D. on 02/22/2017 6:59 AM Dictated By: MABEL JEFFERSON MD 8 Transcribed By: NICCI on 02/22/17658 COPY TO: NUNO ROMANO MD CHEST 2 VIEWS [place] [address] Patient Name: JAMAL NOLAN MR #: [id number] : 1945 Age/Sex: 71/M Req #: [id number] [facility] Physician: NUNO ROMANO MD Ordered by: NUNO ROMANO MD Report #: [id number] Location: MED/SURG2 Room/Bed: [facility] [place] Procedure: [id number] DX/[facility] 2 VIEWS Exam Date: 02/21/17 Exam Time: 1400 REPORT STATUS: Signed PROCEDURE: Frontal and lateral views of the chest. COMPARISON: [facility], CT, OUTSIDE CT IMAGES, 02/02/2017, 13:36. [facility], DX, CHEST XRAY POST PROCEDURE, 02/20/2017, 1 4:18. INDICATIONS: post lung bx FINDINGS: See impression. IMPRESSION: 1. previously described lucency in the left lung is less conspicuous on the current exam. No abnormal lucency is noted anteriorly on t he lateral view. 2. No definite pneumothorax is identified. 3. Central pu lmonary venous congestion. Prominence of the interstitial markings bilaterall y, consistent with previously visualized fibrotic/interstitial changes. Mookie Wheat M.D. Dictated by: Mookie Wheat M.D. on 02/21 at 15:35 Electronically approved by: Mookie Wheat M.D. on at 15:35 Dictated By: MOOKIE WHEAT MD Electronical ly Signed By: MOOKIE WHEAT MD on 02/21/17 153 Transcribed By: JOSE on 02/21 1535 COPY TO: NUNO ROMANO MD CHEST XRAY POST PROCEDURE [place] [address] Patient Name: JAMAL NOLAN MR #: [id number] : 1945 Age/Sex: 71/M Req #: [id number] [facility] Physician: NUNO ROMANO MD Ordered by: TALHA PERAZA DO Report #: [id number] Location: MED/SURG2 Room/Bed: [facility] [place] Procedure: DX/C HEST XRAY POST PROCEDURE Exam Date: Exam Time: REPORT STATUS: Signed PROCEDURE: CHEST XRAY POST PROCEDURE COMPARISON: N one. INDICATIONS: POST LUNG BX FINDINGS: LUNGS: Mild pulmonary v ascular prominence. Left basilar chest tube. PLEURA: Small residual pne umothorax on the recent chest tube placement CT is barely visible but likely in the left anterior upper lobe medially. HEART T MEDIASTINUM: The heart is within normal size-limits. BONES T SOFT TISSUES: No acute f indings. [place] screws overlie the right humeral head. CONCLUSION: Minimal residual pneumothorax. Talha Peraza D.O. Dictated by: Talha Peraza D.O. on 02/20/2017 at 15:02 Electronically approved b y: Talha Peraza D.O. on 02/20/2017 at 15:02 Dictated By: TIFFANI PERAZA DO 1502 Tra nscribed By: JOSE on 02/20/17 1502 COPY TO: TALHA PERAZA DO CHEST TUBE PL W/DRG (IMG INCL) [place] [address] Patient Name: JAMAL NOLAN MR #: [id number] : 1945 Age/Sex: 71/M Req #: [id number] Adm Physician: NUNO ROMANO MD Ordered by: NUNO ROMANO MD Report #: [id number] Location: MED/SURG2 Room/Bed: [facility] [place] Procedure: IR/[facility] ST TUBE PL W/DRG (IMG INCL) Exam Date: Exam Time: REPORT STATUS: Signed PROCEDURE: CHEST TUBE PLACEMENT COMPARISO N: CT biopsy performed this date. INDICATIONS: LEFT UPPER LOBE LESION DESCRIPTION OF PROCEDURE: Informed consent was obtained. The patient was prepped and draped in the standard sterile fashion. Using CT guidance, a chest tube was sterilely placed into the pleural space with Rkylindinger techn ique. TUBE SPECIFICATIONS: 10 [place] loop locking all purpose ron ter. TUBE LOCATION: Left lower anterior lung base MEDICATIONS: None CO MPLICATIONS: None. CONCLUSION: 1. Chest tube placement without complication. 2. Tube was placed to 20 cm of wall suction. 3. Patient will b e admitted for chest tube management. Talha Peraza D.O. Dict ated by: Talha Peraza D.O. on 02/20/2017 at 14:58 Electronically appro jenna by: Talha Peraza D.O. on 02/20/2017 at 14:58 Dictated B y: TALHA PERAZA DO 58 Transcribed By: JOSE on 02/20/17 145 COPY TO: NUNO ROMANO MD CT GUIDED BIOPSY/ASPIR/INJ/YUE [place] [address] Patient Name: JAMAL NOLAN MR #: [id number] : 1945 Age/Sex: 71/M Req #: [id number] Adm Physician: NUNO ROMANO MD Ordered by: NUNO ROMANO MD Report #: [id number] Location: MED/SURG2 Room/Bed: [facility] [place] Procedure: [id number] CT/CT GUIDED BIOPSY/ASPIR/INJ/YUE Exam Date: 02/20/17 Exam Time: 1150 REPORT STATUS: Signed PROCEDURE: CT GUIDED NEEDLE PLACEMENT COMPARISON: [facility] CT ABDOMEN/PELVIS 07/21/[address] CHEST dated 02/02/2017 INDICATIONS: Left upper lobe mass MEDICATIONS: 5 ml 1% lidocaine; patient did receive Ativan in incremental fashion with a total dose of 2 mg. He was continuously monit ored during the procedure by the dedicated IR nurse. EBL: < 5 ml SPECIMEN: Given to pathology DLP: 3831.36 mGy-cm DESCRIPTION OF PROCEDURE: Informed consent was obtained. The patient's left upper chest was prepped and draped in the standard sterile fashion. Multiple CT images were used to localize the abnormality. The skin was anesthetized with lidocaine. Using CT guidance 17 gauge guiding needle was placed into the cavitary left upper lobe mass. Through this needle guide multiple FNA passes were performed with 20G Chiba needles. A total of 6 core biopsies ut ilizing a 20 gauge biopsy gun were also performed. The samples were given to pathology in attendance. The patient tolerated the procedure well. Post procedure pneumothorax was noted. The patient remained asymptomatic but it w as elected to place a chest tube. CONCLUSION: Successful CT guided l eft upper lobe mass biopsy. Talha Peraza D.O. Dictated b y: Talha Peraza D.O. on 02/20/2017 at 14:55 Electronically approved by : Talha Peraza D.O. on 02/20/2017 at 14:55 Dictated By: AARON PERAZA DO 1454 Anand scribed By: JOSE on 02/20/17 5311 COPY TO: NUNO ROMANO MD BIOPSY LUNG [place] [address] Patient Name: JAMAL NOLAN MR #: [id number] : 1945 Age/Sex: 71/M Req #: [id number] Adm Physician: NUNO ROMANO MD Ordered by: NUNO ROMANO MD Report #: [id number] Location: MED/SURG2 Room/Bed: [facility] [place] Procedure: [id number] IR/BIO PSY LUNG Exam Date: 02/20/17 Exam Time: 1150 R EPORT STATUS: Signed PROCEDURE: CT GUIDED NEEDLE PLACEMENT COMPARISON: [facility] CT ABDOMEN/PELVIS 07/21/[address] CHEST dated 02/02/2017 INDICATIONS: Left upper lobe mass ME DICATIONS: 5 ml 1% lidocaine; patient did receive Ativan in incremental fas hion with a total dose of 2 mg. He was continuously monitored during the pro cedure by the dedicated IR nurse. EBL: < 5 ml SPECIMEN: Given to pathology DLP: 3831.36 mGy-cm DESCRIPTION OF PROCEDURE: Informed consent was obtained. The patient's left upper chest was prepped and draped in the standard sterile fashion. Multiple CT images were used to localize the abnormality. The skin was anesthetized with lidocaine. Using CT guidance 17 gauge guiding needle was placed into the cavitary left upper lobe mass. Through this needle guide multiple FNA passes were performed with 20G Chiba needles. A total of 6 core biopsies utilizing a 20 gauge biopsy gun were also performed. The samples were given to pathology in attendance. The patient tolerated the procedure well. Post procedure pneumothorax was noted. The patient remained asymptomatic but it was elected to place a chest tube. CONCLUSION: Successful CT guided left upper lobe mass biopsy. Talha Peraza D.O. Dictated by: Talha Peraza D.O. on 02/20/2017 at 14:55 Electronically approved by: Talha Peraza D.O. on 02/20/2017 at 14:55 Dictated By: TALHA PERAZA DO 7611 Anand scribed By: JOSE on 02/20/17 8804 COPY TO: NUNO ROMANO MD
[2019-04-04 12:46] LABS: BASOPHILS # (AUTO) 0.1 (0.0-0.1); BASOPHILS % 0.9 % (0.0-1.0); EOSINOPHILS # (AUTO) 0.1 (0.0-0.4); EOSINOPHILS % 1.6 % (0.0-6.0); HEMATOCRIT 48.6 % (38.2-49.6); HEMOGLOBIN 16.9 g/dL (14.0-18.0); LYMPHOCYTES # (AUTO) 2.2 (1.0-3.2); LYMPHOCYTES % 25.4 % (18.0-39.1); MEAN CORPUSCULAR HEMOGLOBIN 33.8 pg (28-32); MEAN CORPUSCULAR HGB CONC 34.8 g/dL (31-35); MEAN CORPUSCULAR VOLUME 97.2 fL (81-99); MONOCYTES % 11.4 % (4.4-11.3); NEUTROPHILS # (AUTO) 5.2 (2.1-6.9); NEUTROPHILS % 60.2 % (38.7-80.0); PLATELET COUNT 123 x10e3/uL (140-360); RED CELL DISTRIBUTION WIDTH 14.4 % (11.7-14.4)
[2019-04-04 15:25] VITALS: BP 102/80
--- NOTE | 2019-04-04 21:31 | Operative Report ---
DATE OF PROCEDURE: 04/04/2019 SURGEON: Jose Eduardo Hernadnes MD PROCEDURE PERFORMED: Esophagogastroduodenoscopy. PREOPERATIVE DIAGNOSIS: History of gastric ulcer. POSTOPERATIVE DIAGNOSES: Portal gastropathy, no gastric ulcers found, duodenitis, esophageal varices, grade 2. PREOPERATIVE MEDICATIONS: Consisted of general anesthesia. DESCRIPTION OF PROCEDURE: Using an Olympus 91JinRong video gastroscope, it was inserted into the patient's oropharynx and advanced to the hypopharynx and down into the esophageal body in the mid esophagus down to the GE junction where esophageal varices appeared to be a grade 2. The stomach was entered and insufflated with air. There was a portal gastropathy throughout the stomach lining, but no ulcerations were seen. The pylorus was visualized and entered. There was duodenitis, but no significant disease process otherwise seen. A biopsy was obtained in the duodenal bulb. The endoscope was then withdrawn back into the stomach and confirming the portal gastropathy back up into the esophagus confirming the esophageal varices and out of the patient's mouth and the procedure was ended. In conclusion, we have findings of a portal gastropathy, duodenitis and esophageal varices. Jose Eduardo Hernandes MD SAF/MODL /[id number]
== END | disposition home or self-care (01) ==
LOC: OR 10:04
PROVIDERS: ATTEND Internal Medicine Gastroenterology
DX: K21.0 Gastro-esophageal reflux disease with esophagitis (principal); K29.80 Duodenitis without bleeding; K31.89 Other diseases of stomach and duodenum; K74.60 Unspecified cirrhosis of liver; I85.10 Secondary esophageal varices without bleeding; K76.6 Portal hypertension; M19.90 Unspecified osteoarthritis, unspecified site; G83.14 Monoplegia of lower limb affecting left nondominant side; G83.11 Monoplegia of lower limb affecting right dominant side; E11.9 Type 2 diabetes mellitus without complications; I44.0 Atrioventricular block, first degree; Z87.891 Personal history of nicotine dependence
CPT/HCPCS: 36415; 43239; 82948; 85025; 93005; J2704